=== PATIENT | male | born 1970 | race Caucasian/White ===

== ENCOUNTER 2017-12-07 00:53 | Inpatient (IN) | payer OTHER ==
[2017-12-07] VITALS (10 sets, daily range): BP systolic 101–145; BP diastolic 60–89; PULSE 64–85; RESP 14–18; TEMP 98.2–98.7; O2SAT 96–100
[~2017-12-07 00:53] MED LIST: Z.0.NO CURRENT MEDS
[2017-12-07] MEDS ORDERED: IOHEXOL 350 MG/ML 10 ML VIAL (for RAD DIAG) IVCONTRAST ONE (01:12)
[2017-12-07] MEDS: SODIUM CHLOR 0.9% 1000 ML INJ 1,000 ML IV SCH ×8 (01:15→22:27)
[2017-12-07] MEDS ORDERED: DIPHTH/TETANUS/ACEL PERTUSSIS (BOOSTER) 0.5 ML VIAL/PFS IM ONE (01:15)
[2017-12-07] MEDS ORDERED: ceFAZolin 2 GM PREMIX 50 ML IV ONE (01:15)
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
[2017-12-07 02:18] LABS: AUTOMATED NEUTROPHIL # 6.1 TH/MM3 (1.8-7.7); BASOPHIL % 0.5 % (0.0-2.0); EOSINOPHIL # 0.1 TH/MM3 (0-0.4); EOSINOPHIL % 1.1 % (0.0-4.0); HEMATOCRIT 39.1 % (39.0-51.0); HEMOGLOBIN 13.6 GM/DL (13.0-17.0); LYMPH % 21.3 % (9.0-44.0); LYMPHOCYTE # 1.8 TH/MM3 (1.0-4.8); MEAN CELL VOLUME 90.5 FL (80.0-100.0); MEAN CORPUSCULAR HEMOGLOBIN 31.4 PG (27.0-34.0); MEAN CORPUSCULAR HGB CONC 34.7 % (32.0-36.0); MEAN PLATELET VOLUME 8.3 FL (7.0-11.0); MONO % 7.1 % (0.0-8.0); MONOCYTE # 0.6 TH/MM3 (0-0.9); PLATELET COUNT 230 TH/MM3 (150-450); RED BLOOD COUNT 4.33 MIL/MM3 (4.50-5.90); WHITE BLOOD COUNT 8.7 TH/MM3 (4.0-11.0)
[2017-12-07] MEDS ORDERED: ONDANSETRON HCL 4 MG/2 ML VIAL IV PUSH ONE ×2 (02:30→03:45)
[2017-12-07] MEDS ORDERED: SODIUM CHLORIDE 0.9% FLUSH 10 ML FLUSH IV FLUSH PRN ×2 (02:30→06:45)
[2017-12-07] MEDS ORDERED: ONDANSETRON HCL 4 MG/2 ML VIAL IV PUSH PRN (02:30)
[2017-12-07] MEDS ORDERED: MORPHINE SULFATE 4 MG/ML INJ IV PUSH ONE (02:30)
[2017-12-07] MEDS ORDERED: MORPHINE SULFATE 4 MG/ML INJ IV PUSH PRN (02:30)
[2017-12-07] MEDS ORDERED: ACETAMINOPHEN/HYDROcodone 325 MG/7.5 MG TAB PO PRN (02:30)
[2017-12-07 02:34] LABS: TROPONIN I LESS THAN 0.02 NG/ML (0.02-0.05)
[2017-12-07 02:47] LABS: INTERNATIONAL NORMALIZED RATIO 0.9 RATIO; PROTHROMBIN TIME - PATIENT 9.6 SEC (9.8-11.6)
[2017-12-07] MEDS ORDERED: LIDOCAINE 1%/EPINEPHrine 1:100,000 SOLN 50 ML VIAL INFIL ONE (03:15)
[2017-12-07] MEDS ORDERED: MORPHINE SULFATE 8 MG/ML INJ IV PUSH ONE (03:45)
[2017-12-07 05:19] LABS: BILIRUBIN, URINE NEG (NEG); BLOOD, URINE SMALL (NEG); GLUCOSE,URINE NEG (NEG); KETONE, URINE NEG (NEG); NITRITE,URINE NEG (NEG); PH, URINE 6.5 (5.0-8.5); URINE COLOR LIGHT-YELLOW (YELLW/STRAW); URINE LEUKOCYTE ESTERASE NEG (NEG)
[2017-12-07 05:51] LABS: TROPONIN I LESS THAN 0.02 NG/ML (0.02-0.05)
[2017-12-07] MEDS ORDERED: ENALAPRILAT 1.25 MG/ML VIAL IV PUSH PRN (06:45)
[2017-12-07] MEDS ORDERED: oxyCODONE/ACETAMINOPHEN 5 MG/325 MG TAB PO PRN (06:45)
[2017-12-07] MEDS: METHOCARBAMOL 500 MG TAB PO SCH ×3 (08:27→20:32)
[2017-12-07] MEDS: SODIUM CHLORIDE 0.9% FLUSH 10 ML FLUSH IV FLUSH SCH ×2 (09:00→20:37)
[2017-12-07] MEDS: DOCUSATE SODIUM 100 MG CAP PO SCH ×2 (09:23→20:32)
[2017-12-07] MEDS: MORPHINE SULFATE 4 MG/ML INJ IV PUSH PRN ×2 (09:23→22:03)
[2017-12-07] MEDS: FAMOTIDINE 20 MG TAB PO SCH ×2 (09:23→20:32)
[2017-12-07] MEDS: MAGNESIUM HYDROXIDE SUSP 30 ML CUP PO SCH ×2 (09:23→20:32)
[2017-12-07 09:44] LABS: TROPONIN I LESS THAN 0.02 NG/ML (0.02-0.05)
[2017-12-07] MEDS: MULTIVITAMIN INJ 10 ML, THIAMINE INJ 100 MG, FOLIC ACID INJ 1 MG in SODIUM CHLORID 0.9%... IV SCH (10:22)
[2017-12-07] MEDS: LIDOCAINE HCL 5% PATCH T-DERMAL SCH (10:31)
[2017-12-07] MEDS: KETOROLAC TROMETHAMINE 30 MG/ML (IVP) VIAL IV PUSH SCH ×2 (12:24→17:54)
--- NOTE | 2017-12-07 15:38 | EKG ---
Date Performed: 12/07/2017 Time Performed: 01:44:36 PTAGE: 89 years EKG: Sinus rhythm POSSIBLE RIGHT VENTRICULAR CONDUCTION DELAY Possible SEPTAL MYOCARDIAL INFARCTION - age undetermined ABNORMAL ECG NO PREVIOUS TRACING DOCTOR: Farhan Draper Interpretating Date/Time 12/07/2017 15:37:03
--- NOTE | 2017-12-07 15:38 | EKG ---
Date Performed: 12/07/2017 Time Performed: 04:25:22 PTAGE: 89 years EKG: Sinus rhythm MINIMAL VOLTAGE CRITERIA FOR LVH, CONSIDER NORMAL VARIANT BORDERLINE ECG PREVIOUS TRACING 12/07/17 Possible septal myocardia infarction - age undetermined Anterior Q-w aves have resolved DOCTOR: Farhan Draper Interpretating Date/Time 12/07/2017 15:39:11
--- NOTE | 2017-12-07 15:39 | EKG ---
Date Performed: 12/07/2017 Time Performed: 08:47:15 PTAGE: 89 years EKG: Sinus rhythm VOLTAGE CRITERIA FOR LVH ABNORMAL ECG PREVIOUS TRACING : 12/07/2017 04.25 Since the previous tracing, no significant change noted DOCTOR: Farhan Draper Interpretating Date/Time 12/07/2017 15:39:29
[2017-12-07] MEDS: oxyCODONE/ACETAMINOPHEN 10 MG/325 MG TAB PO PRN ×2 (16:27→20:36)
[2017-12-07] MEDS: REMOVE OLD LIDOCAINE PATCH T-DERMAL SCH (21:00)
[2017-12-08] VITALS (8 sets, daily range): BP systolic 123–145; BP diastolic 71–89; PULSE 62–80; RESP 14–20; TEMP 98–98.4; O2SAT 95–98
[2017-12-08] MEDS: KETOROLAC TROMETHAMINE 30 MG/ML (IVP) VIAL IV PUSH SCH ×5 (00:16→23:02)
[2017-12-08] MEDS: SODIUM CHLOR 0.9% 1000 ML INJ 1,000 ML IV SCH ×2 (02:37→07:21)
[2017-12-08] MEDS: oxyCODONE/ACETAMINOPHEN 10 MG/325 MG TAB PO PRN ×4 (02:50→20:45)
[2017-12-08] MEDS: MORPHINE SULFATE 4 MG/ML INJ IV PUSH PRN ×4 (04:45→23:56)
[2017-12-08 04:56] LABS: AUTOMATED NEUTROPHIL # 4.9 TH/MM3 (1.8-7.7); BASOPHIL % 0.6 % (0.0-2.0); EOSINOPHIL # 0.2 TH/MM3 (0-0.4); HEMATOCRIT 35.2 % (39.0-51.0); HEMOGLOBIN 11.9 GM/DL (13.0-17.0); LYMPHOCYTE # 1.5 TH/MM3 (1.0-4.8); MEAN CELL VOLUME 91.7 FL (80.0-100.0); MEAN CORPUSCULAR HGB CONC 33.8 % (32.0-36.0); MEAN PLATELET VOLUME 8.6 FL (7.0-11.0); MONO % 9.6 % (0.0-8.0); MONOCYTE # 0.7 TH/MM3 (0-0.9); NEUT % 66.8 % (16.0-70.0); PLATELET COUNT 169 TH/MM3 (150-450); RED BLOOD COUNT 3.84 MIL/MM3 (4.50-5.90); RED CELL DISTRIBUTION WIDTH 13.3 % (11.6-17.2); WHITE BLOOD COUNT 7.3 TH/MM3 (4.0-11.0)
[2017-12-08 05:13] LABS: ALBUMIN 2.9 GM/DL (3.4-5.0); ALT (GPT) 50 U/L (12-78); AST (GOT) 22 U/L (15-37); BICARBONATE 26.9 MEQ/L (21.0-32.0); BLOOD UREA NITROGEN 13 MG/DL (7-18); CALCIUM 7.9 MG/DL (8.5-10.1); CHLORIDE 109 MEQ/L (98-107); CREATININE 1.21 MG/DL (0.60-1.30); GLOMERULAR FILTRATION RATE 65 ML/MIN (>89); GLUCOSE,RANDOM 113 MG/DL (74-106); SODIUM (NA) 142 MEQ/L (136-145)
[2017-12-08 05:16] LABS: ALKALINE PHOSPHATASE 78 U/L (45-117); TOTAL BILIRUBIN ADULT 0.3 MG/DL (0.2-1.0); TOTAL PROTEIN 5.8 GM/DL (6.4-8.2)
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
[2017-12-08] MEDS: METHOCARBAMOL 500 MG TAB PO SCH ×3 (07:19→20:44)
[2017-12-08] MEDS: SODIUM CHLORIDE 0.9% FLUSH 10 ML FLUSH IV FLUSH SCH ×2 (09:00→20:45)
[2017-12-08] MEDS: MULTIVITAMIN INJ 10 ML, THIAMINE INJ 100 MG, FOLIC ACID INJ 1 MG in SODIUM CHLORID 0.9%... IV SCH (09:00)
[2017-12-08] MEDS: MAGNESIUM HYDROXIDE SUSP 30 ML CUP PO SCH ×2 (09:30→20:45)
[2017-12-08] MEDS: FAMOTIDINE 20 MG TAB PO SCH ×2 (09:30→20:44)
[2017-12-08] MEDS: DOCUSATE SODIUM 100 MG CAP PO SCH ×2 (09:30→20:44)
[2017-12-08] MEDS: LIDOCAINE HCL 5% PATCH T-DERMAL SCH (09:31)
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
[2017-12-08] MEDS ORDERED: DOCU1CAP39 PO (13:50)
[2017-12-08] MEDS ORDERED: MAGN30S PO (13:50)
[2017-12-08] MEDS ORDERED: [UNRECOGNIZED DRUG - SUPPLY] (13:52)
[2017-12-08] MEDS: GABAPENTIN 300 MG CAP PO SCH (18:35)
[2017-12-08] MEDS: REMOVE OLD LIDOCAINE PATCH T-DERMAL SCH (21:00)
[2017-12-09] MEDS: oxyCODONE/ACETAMINOPHEN 10 MG/325 MG TAB PO PRN ×2 (02:51→08:54)
[2017-12-09 03:13] VITALS: BP 110/73; PULSE 60; RESP 17; TEMP 98.2; O2SAT 97
[2017-12-09] MEDS: METHOCARBAMOL 500 MG TAB PO SCH (05:10)
[2017-12-09] MEDS: KETOROLAC TROMETHAMINE 30 MG/ML (IVP) VIAL IV PUSH SCH (05:10)
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
[2017-12-09 08:33] VITALS: BP 145/97; PULSE 66; RESP 18; TEMP 98.7; O2SAT 97
[2017-12-09] MEDS: LIDOCAINE HCL 5% PATCH T-DERMAL SCH (08:52)
[2017-12-09] MEDS: MAGNESIUM HYDROXIDE SUSP 30 ML CUP PO SCH (08:52)
[2017-12-09] MEDS: DOCUSATE SODIUM 100 MG CAP PO SCH (08:53)
[2017-12-09] MEDS: GABAPENTIN 300 MG CAP PO SCH (08:53)
[2017-12-09] MEDS: FAMOTIDINE 20 MG TAB PO SCH (08:53)
[2017-12-09] MEDS: SODIUM CHLORIDE 0.9% FLUSH 10 ML FLUSH IV FLUSH SCH (08:54)
[2017-12-09] MEDS: MULTIVITAMIN INJ 10 ML, THIAMINE INJ 100 MG, FOLIC ACID INJ 1 MG in SODIUM CHLORID 0.9%... IV SCH (08:54)
[2017-12-09] MEDS ORDERED: OXYC1TAB63 PO (10:38)
[2017-12-09] MEDS ORDERED: METH500T3 PO (10:38)
[2017-12-09] MEDS ORDERED: NORC5TAB PO (10:40)
[2017-12-09 11:39] VITALS: BP 156/93; PULSE 78; RESP 20; TEMP 98.9; O2SAT 96
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
== END 2017-12-09 13:49 | disposition home or self-care (01) | DRG 89 ==
LOC: NEPI 00:53 → NEDA 02:30 → NEDH 06:45 → MERGE 06:46 → EDBD 06:46 → OBSVTOIN 06:46 → NEPHCDU 11:53
PROVIDERS: ADMIT Surgery; ATTEND Surgery
PROC: 0HQ0XZZ Repair Scalp Skin, External Approach (ICD-10-PCS; principal; 2017-12-07)
DX: S06.0X0A Concussion without loss of consciousness, initial encounter (principal); S27.0XXA Traumatic pneumothorax, initial encounter; S22.41XA Multiple fractures of ribs, right side, initial encounter for closed fracture; S01.111A Laceration without foreign body of right eyelid and periocular area, initial encounter; S01.01XA Laceration without foreign body of scalp, initial encounter; M54.5 Low back pain; M43.16 Spondylolisthesis, lumbar region; R07.9 Chest pain, unspecified; R40.2410 Glasgow coma scale score 13-15, unspecified time; Z23 Encounter for immunization; V89.2XXA Person injured in unspecified motor-vehicle accident, traffic, initial encounter; Z72.0 Tobacco use
CPT/HCPCS: 12002; 70450; 71045; 71260; 72125; 72129; 72132; 72170; 74177; 80048; 80053; 80307; 81001; 82550; 82552; 83880; 84484; 85025; 85610; 85730; 86850; 86900; 86901; 93005; 99291; G0390; J1885; J2270; J2405; J3411; J7030; J7040; Q9967